=== PATIENT | female | born 1970 | race African-American/Black ===

== ENCOUNTER → 2016-09-17 | Outpatient (CLI) | payer MEDICAID | LOC: RAD 16:07 | PROVIDERS: ATTEND Student in an Organized Health Care Education/Training Program | DX: R29.818 Other symptoms and signs involving the nervous system (principal) | CPT/HCPCS: 70553; A9577 ==

== ENCOUNTER → 2016-11-15 | Outpatient (CLI) | payer MEDICAID | LOC: RAD 13:29 | PROVIDERS: ATTEND Student in an Organized Health Care Education/Training Program | DX: M54.6 Pain in thoracic spine (principal); M47.894 Other spondylosis, thoracic region | CPT/HCPCS: 72070 ==

== ENCOUNTER 2016-11-21 09:50 | Emergency (ER) | payer OTHER, MEDICAID ==
[2016-11-21] MEDS ORDERED: IBUPROFEN 600 MG TABLET PO ONE (10:17)
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
[2016-11-21 10:39] VITALS: BP 127/90
== END 2016-11-21 10:39 | disposition home or self-care (01) ==
LOC: ER 09:50
DX: S09.90XA Unspecified injury of head, initial encounter (principal); M54.9 Dorsalgia, unspecified; V87.7XXA Person injured in collision between other specified motor vehicles (traffic), initial encounter
CPT/HCPCS: 99283

== ENCOUNTER 2020-03-25 13:54 | Emergency (ER) | payer BC, MEDICAID, OTHER ==
[2020-03-25 14:01] VITALS: BP 145/98
--- NOTE | 2020-03-25 14:17 | ER Document Report ---
HPI - HPI Time Seen by Provider: 03/25/20 14:14 Pain Level: Denies Notes: CHIEF COMPLAINT: Numbness and tingling in the bilateral hands HPI: 49-year-old female presenting with 3 weeks of numbness and tingling in both hands. Extends to all fingers, does not extend past the wrists. States it is been fairly constant she noticed it is worse with fine motor movement and work and picking things up. States that she might have been diagnosed with carpal tunnel issues previously and was in wrist splints which seem to help. Has not seen her primary care provider or orthopedics about this issue. Denies chest pain shortness of breath headache neck pain or other complaints ROS: See HPI - all other systems were reviewed and are otherwise negative Constitutional: no fever Eyes: no drainage, no blurred vision ENT: no runny nose, no sore throat Cardiovascular: no chest pain Resp: no SOB, no cough GI: no vomiting, no diarrhea, no abdominal pain : no dysuria Integumentary: no rash Allergy: no hives Musculoskeletal: no extremity pain or swelling Neurological: + numbness/tingling, no weakness MEDICATIONS: I agree with the patient medications as charted by the RN. ALLERGIES: I agree with the allergies as charted by the RN. PAST MEDICAL HISTORY/PAST SURGICAL HISTORY: Reviewed and agree as charted by RN. SOCIAL HISTORY: Reviewed and agree as charted by RN. FAMILY HISTORY: No significant familial comorbid conditions directly related to patient complaint EXAM: Reviewed vital signs as charted by RN. CONSTITUTIONAL: Alert and oriented and responds appropriately to questions. Well-appearing; well-nourished HEAD: Normocephalic; atraumatic EYES: Conjunctivae clear, sclerae non-icteric ENT: normal nose; no rhinorrhea; moist mucous membranes NECK: Supple without meningismus; non-tender; no cervical lymphadenopathy, no masses CARD: RRR; no murmurs, no clicks, no rubs, no gallops; symmetric distal pulses RESP: Normal chest excursion without splinting or tachypnea; breath sounds clear and equal bilaterally; no wheezes, no rhonchi, no rales, pulse oximetry 100% on room air not hypoxic ABD/GI: non-distended BACK: The back appears normal EXT: Normal ROM in all joints; no cyanosis, no effusions, no edema. Subjective numbness and tingling sensation in all fingers on both the dorsal and volar aspect of both hands. Radial and ulnar pulses are present and equal in both wrists. Strength is equal on flexion extension of both wrists as well as flexion extension and abduction of all fingers and thumbs. SKIN: Normal color for age and race; warm; dry; good turgor; no acute lesions noted NEURO: Moves all extremities equally; Motor function intact PSYCH: The patient's mood and manner are appropriate. Grooming and personal hygiene are appropriate. MDM: 49-year-old female with history of prior carpal tunnel syndrome presenting with similar symptoms. Will place patient in bilateral cock-up splints anti- inflammatories ice refer to orthopedics. She has no neck pain or other systemic complaints at this time - MUSCULOSKELETAL Musculoskeletal: REPORTS: Extremity pain Past Medical History - Social History Smoking Status: Never Smoker Frequency of alcohol use: None Drug Abuse: None Family History: Reviewed & Not Pertinent Renal/ Medical History: Denies: Hx Peritoneal Dialysis Vertical Provider Document - INFECTION CONTROL TRAVEL OUTSIDE OF THE [place] IN LAST 30 DAYS: No Course - Vital Signs Vital signs: Temp Pulse Resp BP Pulse Ox 98.0 F 72 20 145/98 H 100 03/25/20 14:00 03/25/20 14:00 03/25/20 14:00 03/25/20 14:00 03/25/20 14:00 Discharge - Discharge Clinical Impression: Numbness and tingling in both hands Condition: Stable Disposition: HOME, SELF-CARE Instructions: Carpal Tunnel Syndrome ([facility]) Additional Instructions: Ice the volar aspects of the wrists 2-3 times daily for 5 to 10 minutes at a time. Use the wrist splints while awake. Follow-up with orthopedics for further evaluation and management call for appointment Prescriptions: Naproxen 500 mg PO BID PRN #14 tablet PRN Reason: Referrals: CHAS LOPES DO [Primary Care Provider] - Follow up as needed SEVERIANO DRUMMOND DO [ACTIVE STAFF] - Follow up as needed
== END 2020-03-25 14:30 | disposition home or self-care (01) ==
LOC: ER 13:54
DX: R20.0 Anesthesia of skin (principal)
CPT/HCPCS: 99282